=== PATIENT | male | born 1960 | race African-American/Black ===

== ENCOUNTER 2018-03-04 09:15 | Emergency (ER) | payer SELFPAY ==
[2018-03-04] MEDS ORDERED: cloNIDine 0.1 MG TAB ONE (10:29)
[2018-03-04] MEDS ORDERED: Lisinopril 10 MG TAB ONE (10:29)
[2018-03-04 10:55] LABS: Hemoglobin 16.3 g/dL (14.0-18.0); Mean Corpuscular HGB CONC 35.1 g/dL (32.0-36.0); Mean Corpuscular Volume 96.7 fl (80.0-94.0); Mean Platelet Volume 7.5 fL (7.4-10.4); Platelet Count 215 thou/uL (130-400); RBC Distribution Width 11.7 % (11.5-14.5)
[2018-03-04 11:13] LABS: Eosinophils 1 % (0-10); Lymphocytes 72 % (21-51); MDiff Complete? YES; Monocytes 6 % (0-10); Neutrophil 21 % (42-75); PLT Morphology Comment Appears Adequate
[2018-03-04 11:15] LABS: ALT (SGPT) 32 U/L (8-55); AST (SGOT) 42 U/L (5-34); Alkaline Phosphatase 54 U/L (40-150); Anion Gap 14 mmol/L (10-20); BUN (Urea Nitrogen) 15 mg/dL (8.4-25.7); Bilirubin, Total 1.1 mg/dL (0.2-1.2); Calc. Creatinine Clearance 0 mL/min (70-130); Calcium 9.5 mg/dL (7.8-10.44); Carbon Dioxide 26 mmol/L (22-29); Chloride 102 mmol/L (98-107); Estimated GFR-MDRD 72; Globulin 4.2 g/dL (2.4-3.5); Glucose 96 mg/dL (70-105); Potassium 3.4 mmol/L (3.5-5.1); Protein, Total 8.2 g/dL (6.0-8.3); Sodium 139 mmol/L (136-145)
[2018-03-04] MEDS ORDERED: Ketorolac Tromethamine 60 MG/2 ML VIAL ONE (11:58)
== END 2018-03-04 12:18 | disposition home or self-care (01) ==
LOC: ERS 09:15
DX: M54.5 Low back pain (principal); I10 Essential (primary) hypertension
CPT/HCPCS: 36415; 80053; 85025; 96372; J1885